=== PATIENT | female | born 1935 | race African-American/Black ===

== ENCOUNTER 2019-05-22 21:40 | Inpatient (IN) | payer OTHER ==
[~2019-05-22] VITALS: Ht 170.2 cm; Wt 49.0 kg
--- NOTE | ~2019-05-22 | HC ---
[address] [place] [address] CONSULTATION Name: ELIAN RUSSELL Room #: 445-P [facility] IN M.R.#: [id number] Admission: 05/23/19 Attend Phys: Brian Laurent MD Discharge: Date of : 31 Report #: [id number] THIS REPORT FOR: //name// CC: Brian Akbar DATE OF SERVICE: 05/23/2019 REASON FOR CONSULTATION: End-stage renal disease. REASON FOR PRESENTATION: Fever and mental status changes. HISTORY OF PRESENT ILLNESS: This is a very well-known patient to me. She is a dialysis patient at [facility]. She has advanced dementia. Her daughter brought her to the Emergency Room because she was acting in an unusual way with what seems to be fever. She has decreased oral intake in the last few days. The patient's daughter recorded a temperature of 100.2. Her daughter is usually her supervisor television chassis repair. She had reported that her mom had what seems to be a seizure-like activity. The patient was admitted to be further evaluated. No previous similar episodes. No nausea or vomiting, but she has reduced oral intake. She still makes some urine and the urine showed some red blood cells and white blood cells with some bacteria. She is currently being treated as a potential urinary tract infection causing her decompensation. MEDICATIONS: 1. Docusate. 2. Amlodipine. 3. Alprazolam. 4. Sensipar. PAST MEDICAL HISTORY: 1. End-stage renal disease. 2. Advanced dementia. 3. Bladder cancer. SOCIAL HISTORY: Lives with her daughter. FAMILY HISTORY: Unobtainable given her advanced dementia. REVIEW OF SYSTEMS: Unobtainable given her advanced dementia. PHYSICAL EXAMINATION: GENERAL: She is pleasantly demented, confused. VITAL SIGNS: Temperature 36.9, blood pressure 127/59. HEAD AND NECK: No jugular venous distention. CHEST: No crackles. [facility] [address] [place] [address] CONSULTATION Name: ELIAN RUSSELL Room #: 445-P [facility] IN [facility].#: [id number] Admission: 05/23/19 Attend Phys: Brian Laurent MD Discharge: Date of : 33 Report #: [id number] CARDIOVASCULAR: No rub detected. ABDOMEN: Soft, nontender. EXTREMITIES: Lower extremities, no edema. LABORATORY DATA: Laboratory values reviewed. White blood cell count is 10.8, hemoglobin is 11.6. Sodium is 139, BUN is 35, and creatinine is 6.1. ASSESSMENT, IMPRESSION AND PLAN: 1. End-stage renal disease. 2. Mental status changes with a baseline dementia. 3. Urinary tract infection. 4. Seizure activities per the family members. 5. We will arrange for the patient to have her usual hemodialysis every Thursday, and Thursday. 6. Blood cultures obtained in the ER and I will wait for those cultures to decide about further adjustment of her antibiotic. Meanwhile, continue with the Rocephin. 7. Investigate for other potential causes of infections. 8. We will continue to follow and address her needs accordingly. By: [phone] Yris Matos MD /nt
[~2019-05-22 21:40] MED LIST: ALPRAZOLAM 0.50.5 M1 PO; BACTRIM DS TAB1 EACH PO; CEPHALEXIN500 MG PO; CIPRO250 M1 PO; CIPRO500 MG PO; CITRATE OF MAG296 ML PO; COLACE100 MG PO; DIASTAT2.5 MG RECTAL; DILTIAZEM 24HR240 M1 PO; DILTIAZEM ER300 MG PO; FAMOTIDINE 40 M40 M1 PO; KEFLEX500 MG PO; LIPITOR10 MG PO; LORTAB 5-500 T1 EAC1 PO; MACROBID 100 M100 M1 PO; NEPHROCAPS SOFT1 CAP PO; NORVASC 2.5 MG2.5 M1 PO; NORVASC 2.5 MG2.5 MG PO; PEPCID40 MG PO; PLAVIX 75 MG TA75 M1 PO; RENALPREN SOFTGE1 MG PO; SENSIPAR 30 MG30 M1 PO; SERTRALINE HCL50 MG PO; VITAMIN B-1100 M2 PO; VITAMIN B-6100 MG PO; VITAMIN D31000 UNI2 PO
[2019-05-22 21:49] VITALS: BP 159/54
[2019-05-22] MEDS ORDERED: KEFLEX500 M2 PO (22:06)
[2019-05-22] MEDS ORDERED: RENA-VITE RX T1 EACH PO (22:07)
[2019-05-22] MEDS ORDERED: NORVASC 2.5 MG2.5 M1 PO (22:08)
[2019-05-22] MEDS ORDERED: FAMOTIDINE 20 M20 MG PO (22:08)
[2019-05-22 22:25] LABS: ABSOLUTE NEUTROPHILS 8.5 thou/uL (1.4-8.2); BASOPHILS 0.5 % (0.0-2.0); EOSINOPHILS 1.8 % (0.0-3.0); HEMATOCRIT 36.5 % (37.0-47.0); HEMOGLOBIN 11.6 gm/dL (12.0-15.0); LYMPHOCYTES 12.2 % (24.0-44.0); MCH 23.1 pg (26.0-34.0); MCHC 31.7 g/dL (28.0-37.0); MCV 72.7 fL (80.0-100.0); PLATELET COUNT 191 thou/uL (150-400); POLYS 78.5 % (36.0-66.0); RBC 5.02 mil/uL (4.20-5.00); RDW 16.7 % (10.5-14.5); WBC 10.8 thou/uL (4.0-11.0)
[2019-05-22 22:34] LABS: CALCIUM 8.8 mg/dL (8.5-10.1); CREATININE 6.1 mg/dL (0.6-1.0); POTASSIUM 4.7 mmol/L (3.5-5.1)
[2019-05-22 22:40] LABS: ALBUMIN 3.1 g/dL (3.4-5.0); TOTAL BILIRUBIN 0.5 mg/dL (<0.1-1.0); TOTAL PROTEIN 7.4 g/dL (6.4-8.2)
[2019-05-22 22:46] LABS: URINE BILIRUBIN NEGATIVE (Negative); URINE BLOOD 1+ (Negative); URINE CLARITY SL CLOUDY; URINE COLOR YELLOW; URINE GLUCOSE-RANDOM* NEGATIVE (Negative); URINE KETONES NEGATIVE (Negative); URINE NITRITE-REFLEX NEGATIVE (Negative); URINE PROTEIN (DIPSTICK) 2+ (Negative); URINE UROBILINOGEN 0.2 E.U./dl (0.2-1.0)
[2019-05-22 22:49] LABS: URINE LEUKOCYTES-REFLEX 3+ (Negative)
[2019-05-22 22:52] LABS: CASTS None Seen /LPF (None Seen); MUCUS 0-3 Light strn/LPF (None Seen); SQUAMOUS None Seen /LPF (0-3); URINE WBC-REFLEX >25 Many /HPF (0-5)
[2019-05-22 22:53] LABS: BACTERIA-REFLEX >30 Many /HPF (None Seen); CRYSTALS None Seen /LPF (None Seen); URINE RBC 3-10 Few /HPF (0-2); WBC CLUMPS Packed (None Seen)
[2019-05-22 23:54] LABS: ANISOCYTOSIS 1+; HYPOCHROMASIA 1+; MICROCYTES 1+
[2019-05-22 23:55] LABS: POLYCHROMASIA OCCASIONAL
[2019-05-23] VITALS (7 sets, daily range): BP systolic 13–137; BP diastolic 50–61
--- NOTE | 2019-05-23 04:29 | NUR ---
PT ARRIVED TO THE UNIT AT AROUND 0130 HRS ACCOMPANIED BY DTR. ADMISSION QUESTIONS ANSWERED BY DAUGHTER. PT WITH EYES CLOSED AND WILL SAY A WORD HERE AND THERE-OTHERWISE SHE IS PRETTY LETHARGIC LOOKING.SATTING OKAY ON ROOM AIR.SEIZURE PREC IN PLACE. AFEBRILE. BOLUS NS GIVEN.FISTULA TO SNEHAL WITH POSITIVE BRUIT AND THRILL.NO EDEMA.NO SOA. WILL CONTINUE WITH POC TILL EOS.
--- NOTE | 2019-05-23 11:26 | NUR ---
PT CARE ASSUMED AT 0700. PT IS Q2 TURNS. PT IS ALERT AND RESTING.TWO OF PT DAUGHTERS HAVE CALLED FOR AN UPDATE ON PT. PT AWAITING EKG. PT DOES NOT HAVE TEETH AND ACCORDING TO DAUGHTER EATS NON PUREED FOOD JUST FINE WITHOUT TEETH. FISTULA SITE HAS NO OPEN SITES AND HAS A PRESENT BRUIT AND THRILL. IV SITE IS PATENT WITH NO REDNESS OR SWELLING. WRAPPED WITH COBAN. SKIN IS INTACT. BP MEDICATION WAS HELD DUE TO LOW BP THIS AM. DIALYSIS TUE, THUR, SAT. ORDERS ARE IN FOR TOMORROWS DIALYSIS. BED IS IN LOW POSITION WITH BED ALARM ON AND LOCKED. ALL LIGHT IN REACH. SPOUSE IS HERE TO VISIT.
--- NOTE | 2019-05-23 14:07 | NUR ---
ORDERS RECEIVED FOR PT EVAL AND TREAT. Pt IS MOSTLY BEDBOUND PER Pt. HAS ADVANCED DEMENTIA. SPOKE WITH DTR. Pt GETS UP TO W/C WITH HEAVY TRANSFER ASSIST FROM FAMILY OR IS LIFTED INTO W/C BY 25 Y/O GRANDSON TO GO TO DIALYSIS THREE TIMES A WEEK. 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 TOTAL CARE FOR ADLs. Pt CAN FEED HERSELF FINGER FOODS. DTR IS Pt'S CAREGIVER BUT WORKS NIGHTS. Pt'S SON ALSO HELPS WITH CARES WELL GRANDSON. PER DTR, Pt STOPPED WALKING ABOUT 5 YEARS AGO, WAS AFRAID OF FALLING. Pt NOT APPROPRIATE FOR ACUTE PT SERVICES. ACUTE PT TO SIGN OFF.
--- NOTE | 2019-05-24 01:27 | NUR ---
ASSESSMENT COMPLETED. PT OBSERVED SLEEPING. EXHIBITS NO SIGNS OF PAIN. REPOSITIONING PROVIDED. AFEBRILE. REMAINS ON ROOM AIR.PLAN FOR DIALYSIS TOMORROW.
[2019-05-24 04:40] VITALS: BP 156/71
[2019-05-24 06:25] LABS: HEMATOCRIT 29.7 % (37.0-47.0); MCH 23.4 pg (26.0-34.0); MCHC 31.7 g/dL (28.0-37.0); MCV 73.6 fL (80.0-100.0); PLATELET COUNT 184 thou/uL (150-400); RBC 4.03 mil/uL (4.20-5.00); RDW 16.7 % (10.5-14.5); WBC 5.1 thou/uL (4.0-11.0)
[2019-05-24 06:33] LABS: HEMOGLOBIN 9.4 gm/dL (12.0-15.0)
[2019-05-24 06:37] LABS: CALCIUM 8.7 mg/dL (8.5-10.1); POTASSIUM 4.5 mmol/L (3.5-5.1)
[2019-05-24 06:39] LABS: CREATININE 7.2 mg/dL (0.6-1.0)
[2019-05-24 07:20] LABS: ABSOLUTE NEUTROPHILS 3.4 thou/uL (1.4-8.2); ANISOCYTOSIS 1+; HYPOCHROMASIA 1+; MICROCYTES 1+
--- NOTE | 2019-05-24 09:02 | NUR ---
assessment-pt LIVES AT HOME WITH HER DTR EZEKIEL, SON AND GRANDSON WHO IS 25 YEARS OLD. S/W DTR EZEKIEL & EX- AT THE BEDSIDE. PT VISION IS VERY POOR BUT IS ABLE TO EAT FINGER FOODS OTHERWISE PT NEEDS EVERYTHING DONE FOR HER. PT HAS ADVANCED DEMENTIA PER DTR. PT DOES TALK. DTR WORKS NIGHTS. PT HAS TO BE CARRIED TO THE CAR BY THE GRANDSON FOR TRANPORT TO DIALYSIS ON FIRST SHIFT BY CAR. DCI DTR ASKING ABOUT A SEARCH ENGINE OPTIMIZATION MANAGER WC AND PHYSICAL THERAPY DISCUSSED A TRANSPORT CHAIR WITH HER. DTR ANTICIPATES PT WILL DC BACK HOME ONCE MEDICALLY STABLE. FOLLOWING TO ASSIST WITH DC PLANNING.
[2019-05-24 09:16] VITALS: BP 124/65
--- NOTE | 2019-05-24 09:52 | EKG ---
[address] [employer] [place] [address] ELECTROCARDIOGRAM REPORT Name: ELIAN RUSSELL Room #: 445-P ADM IN M.R.#: [id number] Admission: 05/23/19 Attend Phys: Rosa Brewster Discharge: Date of : 33 Report #: [id number] THIS REPORT FOR: //name// [facility] ED Test Date: 2019-05-22 Test Time: 21:56:09 Pat Name: ELIAN RUSSELL Department: Room: 445 Gender: F Traffic Maintenance Supervisor: ISIDRA : 1935 Requested By: Zak Pereira Order Number: [id number] MD: Rip Metz Measurements Intervals [place] Rate: 81 P: -17 WI: 190 QRS: -23 QRSD: 78 T: 69 QT: 396 QTc: 460 Interpretive Statements Sinus rhythm Borderline left axis deviation Abnormal R-wave progression, early transition Compared to ECG 02/06/2018 11:35:44 No significant changes Electronically Signed On 05-24-2019 9:52:06 MOLDED GOODS OPERATOR by Rip Metz [email or web address] <ELECTRONICALLY SIGNED> By: Rip Metz MD, [facility] 05/24/19 0952 [id number] 55 Rip Metz MD, [facility] /EPI
--- NOTE | 2019-05-24 12:49 | NUR ---
Assess for low BMI. Pt admitted with UTI, has hx ESRD/dialysis and advanced dementia. Lives with daughter-present in room at time of visit. States pt usually eats well, no diet restrictions at home but follows up with renal dietitian if needed. Asking to have diet liberalized to regular-need to address with Production Controller for order. No teeth but tolerates most foods and prefers finger foods. No significant wt changes per daughter. Daughter eager to take mom back home stating "I don't even know why she is here". Low nutrition risk
--- NOTE | 2019-05-24 12:52 | NUR ---
Daughter is requesting diet to be liberalized to regular since she does not follow a restrictive diet at home. Need to address with jump roll operator for approval.
--- NOTE | 2019-05-24 17:57 | NUR ---
PT A&OX SELF. NON AMBULATORY AT THIS TIME. IV INTACT IN L FA. DAUGHTER HAS BEEN AT THE SEDSIDE THROUGHOUT THE DAY. HAS JUST RETURNED FROM DIALYSIS. BED ALARM ON, CALL LIGHT W/I REACH. WILL CONT POC.
[2019-05-24 19:26] VITALS: BP 120/40
[2019-05-25 00:40] VITALS: BP 120/40
--- NOTE | 2019-05-25 02:42 | NUR ---
PT RESTING QUIETLY. IV INTACT. DAUGHTER HAS STAYED WITH HER THROUGH THE NIGHT. CONTINUES TO RECEIVE ANCEF IV. STATED THAT SHE IS READY TO GO HOME.
[2019-05-25 04:17] VITALS: BP 123/40
[2019-05-25] MEDS ORDERED: CEFUROXIME250 MG PO (09:33)
[2019-05-25 09:39] VITALS: BP 137/56
--- NOTE | 2019-05-25 09:40 | NUR ---
pt care assumed at 0700. alert and oriented to self. pt. is calm and resting in her room. daughter would like some home health involved when discharging to help with a better routine at home. pt had dialysis yesterday. pt takes meds whole with applejuice. pt is to discharge today and daughter would like for this to happen before 1500 due to her work schedule. pt is a feeder. iv is saline locked, patent, with no redness or swelling.
[2019-05-25 10:42] VITALS: BP 137/56
[2019-05-25 11:21] VITALS: BP 137/56
[2019-05-25 12:03] VITALS: BP 137/56
--- NOTE | 2019-05-26 10:36 | NUR ---
PT DISCHARGED ON 05/25/19 FAXED DC ORDERS/SUMMARY TO [facility] SPOKE WITH EUGENIE IN INTAKE THEY RECEIVED DC ORDERS AND WILL NOTIFY PT TIME OF VISITS.
== END 2019-05-25 12:37 | disposition home health service (06) | DRG 689 ==
LOC: ER 21:40 → EROBS 05-23 00:29 → 4S 05-23 00:29
PROVIDERS: Nurse Practitioner; Nurse Practitioner Family; ADMIT Hospitalist
PROC: 5A1D70Z Performance of Urinary Filtration, Intermittent, Less than 6 Hours Per Day (ICD-10-PCS; principal; 2019-05-23)
DX: N12 Tubulo-interstitial nephritis, not specified as acute or chronic (principal); G93.41 Metabolic encephalopathy; E46 Unspecified protein-calorie malnutrition; Z68.1 Body mass index [BMI] 19.9 or less, adult; I12.0 Hypertensive chronic kidney disease with stage 5 chronic kidney disease or end stage renal disease; N18.6 End stage renal disease; F03.90 Unspecified dementia, unspecified severity, without behavioral disturbance, psychotic disturbance, mood disturbance, and anxiety; K21.9 Gastro-esophageal reflux disease without esophagitis; F32.9 Major depressive disorder, single episode, unspecified; C67.9 Malignant neoplasm of bladder, unspecified; R41.0 Disorientation, unspecified; R74.0 Nonspecific elevation of levels of transaminase and lactic acid dehydrogenase [LDH]; R56.9 Unspecified convulsions; D63.8 Anemia in other chronic diseases classified elsewhere; Z79.2 Long term (current) use of antibiotics; Z86.73 Personal history of transient ischemic attack (TIA), and cerebral infarction without residual deficits; Z79.899 Other long term (current) drug therapy
CPT/HCPCS: 10195; 32100

== ENCOUNTER 2020-07-24 10:34 | Inpatient (IN) | payer OTHER ==
[~2020-07-24] VITALS: Ht 170.2 cm; Wt 43.1 kg
[2020-07-24 10:34] VITALS: BP 148/54
[~2020-07-24 10:34] MED LIST changes: +CEFUROXIME250 MG PO; +FAMOTIDINE 20 M20 MG PO; +KEFLEX500 M2 PO; +RENA-VITE RX T1 EACH PO
[2020-07-24 11:13] LABS: ABSOLUTE NEUTROPHILS 3.8 thou/uL (1.4-8.2); EOSINOPHILS 3.2 % (0.0-3.0); HEMATOCRIT 37.4 % (37.0-47.0); HEMOGLOBIN 11.6 gm/dL (12.0-15.0); LYMPHOCYTES 17.5 % (24.0-44.0); MCH 23.2 pg (26.0-34.0); MCHC 31.1 g/dL (28.0-37.0); MCV 74.7 fL (80.0-100.0); MONOCYTES 7.9 % (1.0-8.0); PLATELET COUNT 204 thou/uL (150-400); POLYS 70.4 % (36.0-66.0); RBC 5.01 mil/uL (4.20-5.00); RDW 18.6 % (10.5-14.5); WBC 5.4 thou/uL (4.0-11.0)
[2020-07-24 11:26] LABS: URINE BILIRUBIN NEGATIVE (Negative); URINE BLOOD 3+ (Negative); URINE CLARITY CLOUDY; URINE COLOR YELLOW; URINE GLUCOSE-RANDOM* NEGATIVE (Negative); URINE KETONES NEGATIVE (Negative); URINE NITRITE-REFLEX NEGATIVE (Negative); URINE PROTEIN (DIPSTICK) 2+ (Negative); URINE UROBILINOGEN 0.2 E.U./dl (0.2-1.0)
[2020-07-24 11:32] LABS: URINE LEUKOCYTES-REFLEX 3+ (Negative)
[2020-07-24 11:36] LABS: INR 1.1; PROTIME 12.4 Seconds (9.3-11.4)
--- NOTE | 2020-07-24 11:44 | EKG ---
[address] [address] [facility] [place] [address] ELECTROCARDIOGRAM REPORT Name: ELIAN RUSSELL Room #: PRE [facility]..#: [id number] Admission: Attend Phys: Discharge: Date of : 33 Report #: [id number] [facility] ED Test Date: 2020-07-24 Test Time: 11:04:57 Pat Name: ELIAN RUSSELL Department: Room: Gender: F Poultry And Fish Butcher: DIMITRY : 1935 Requested By: Beba Barrientos Order Number: [id number] MD: Darwin Villarreal Measurements Intervals [place] Rate: 81 P: 49 ND: 177 QRS: -24 QRSD: 87 T: 84 QT: 404 QTc: 469 Interpretive Statements Sinus rhythm Borderline left axis deviation Abnormal R-wave progression, early transition Compared to ECG 05/22/2019 21:56:09 No significant changes Electronically Signed On 07-24-2020 11:44:37 POLITICAL GEOGRAPHER by Darwin Villarreal [email or web address] <ELECTRONICALLY SIGNED> By: Darwin Villarreal MD, [facility] 07/24/20 1144 1104 1104 Darwin Villarreal MD, [facility] /EPI
[2020-07-24 11:45] LABS: ANION GAP 13 mmol/L (7-16); BUN 21 mg/dL (7-18); CALCIUM 8.6 mg/dL (8.5-10.1); CHLORIDE 96 mmol/L (98-107); CO2 24 mmol/L (21-32); CREATININE 3.8 mg/dL (0.6-1.0); GLUCOSE 169 mg/dL (74-106); POTASSIUM 3.5 mmol/L (3.5-5.1); SODIUM 133 mmol/L (136-145)
[2020-07-24 11:50] LABS: SGOT 33 U/L (15-37); SGPT 21 U/L (14-59); TOTAL BILIRUBIN 0.4 mg/dL (0.2-1.0); TOTAL PROTEIN 7.4 g/dL (6.4-8.2); TROPONIN-I <0.06 ng/mL (<0.06)
[2020-07-24 12:07] LABS: WBC CLUMPS Many (None Seen)
[2020-07-24 12:08] LABS: BACTERIA-REFLEX >30 Many /HPF (None Seen); CASTS None Seen /LPF (None Seen); SQUAMOUS None Seen /LPF (0-3); URINE WBC-REFLEX >25 Many /HPF (0-5)
[2020-07-24 12:09] LABS: CRYSTALS None Seen /LPF (None Seen); URINE RBC 3-10 Few /HPF (0-2)
[2020-07-24] MEDS ORDERED: TUMS200 MG PO (13:11)
[2020-07-24 17:24] VITALS: BP 139/54
--- NOTE | 2020-07-24 17:46 | NUR ---
GURU WALLACE TO CONFIRM DIET SPEECH EVAL HAS NOT BEEN DONE AND FAMILY STATES THAT PT CAN ONLY EAT SOFT FOODS DUE TO NOT HAVING ANY TEETH AND HAS TO BE A KIDNEY DIET
[2020-07-24 18:03] VITALS: BP 139/54
[2020-07-24 20:00] VITALS: BP 151/55
--- NOTE | 2020-07-25 02:07 | NUR ---
PT CARE ASSUMED WITH PT IN BED WITH DAUGHTER AT THE BEDSIDE.PT ADMISSION STARTED .STAFF COMPLETED ADMISSION AND ASSESSMENT.DAUGTER ASSISTED WITH ANSWERING QUESTIONS PT UNABLE RESPOND.PT HAS NO TEETH BUT DAUGHTER SAID PT IS ABLE TO EAT REGULAR DIET ACCEPT FOR NUTS.DAUGHTER ASSISTED WITH FEEDING PT WITH SANDWICH AND PT ATE WITH NO ISSUES.PT HAS DIALYSIS ON THURSDAY AND THURSDAY AND HAD ONE YESTERDAY BEFORE COMING TO THE ED.PT IS ON BEDREST AND IS BED BOUND AND USES A W/C AT HOME WITH DAUGHTER.AVERY CATHETER IN PLACE.AV FISTULA FOR DIALYSIS ON LT UA.IV ACCESS ON RT UA AND LT IJ SL.WILL CONTINUE TO MONITOR PER POC
[2020-07-25 07:14] VITALS: BP 127/92
--- NOTE | 2020-07-25 12:36 | NUR ---
PT ADMITTED RELATED TO UTI AND SEPSIS. CM REVIEWED CHART AND SPOKE WITH CARE TEAM. CM CALLED AND SPOKE WITH PT'S DTR/ALANIS RUSSELL WHO WAS AT BEDSIDE. SHE INDICATED THAT PT HAD BEEN LIVING IN A HOUSE WITH HER WITH 2 STEPS TO ENTER AND NO STEPS SHE USES INSIDE. DTR INDICATED THAT THEY HAVE A HOSPITAL BED AND WC FOR HOME USE. DTR INDICATED THAT SHE AND FAMILY LIFT PT UP FOR TRANSFERS TO AND FROM SURFACES. PT GOES TO [facility] THURSDAY AND THURSDAY DURING PANDEMIC PER DTR'S PREFERENCE 6:30-9:30 CHAIR TIME. CM SPOKE WITH HER REGARDING POSSIBLE HOSPICE SERVICES HOSPITALIST HAD MENTIONED SHE MIGHT BE INTERESTED IN [facility] HOUSE ADMISSION DTR INDICATED THAT SHE WAS PLANNING FOR PT TO DC HOME AND NOT REALLY INTERESTED IN HH SERVICES UP DC. CM TO FOLLOW INDICATED WITH DC PLANNING.
[2020-07-25 16:42] VITALS: BP 97/46
--- NOTE | 2020-07-25 19:25 | NUR ---
Assumed pt care at 7am.Assessment completed,vss.Dtr at bs most of the time till around 1600 assisted with feeding. Completed bath given by shift supervisor rn early this shift.Pt pulled piv this am and was replaced iv team.Pt tolerated meds and diet.Dr Brewster here ,no new order noted.Fall bundle in place.Will continue to monitor.
[2020-07-25 19:48] VITALS: BP 118/53
--- NOTE | 2020-07-26 03:46 | NUR ---
PT IS A/O X1 AND IS UNABLE TO VERBALIZED NEEDS. IS ON BEDREST AND REQUIRES Q2HR TURNS AND FREQUENT ROUNDING. ROOM AIR. AVERY IN PLACE AND DRAINING YELLOW URINE. NO BM THIS SHIFT. VSS. SPOKE WITH DAUGHTER AND GAVE UPDATE. FALL PRECAUTIONS ARE IN PLACE, CALL LIGHT IS WITHIN REACH.
[2020-07-26 07:30] VITALS: BP 142/67
[2020-07-26] MEDS ORDERED: CEFADROXIL250 MG/5 M PO (10:35)
[2020-07-26] MEDS ORDERED: KEPPRA750 MG PO (10:36)
[2020-07-26 11:34] VITALS: BP 142/67
--- NOTE | 2020-07-26 12:14 | NUR ---
ASSUMED PT CARE AROUND 0700. PT ALERT TO SELF. ON ROOM AIR. AVERY IN PLACE. IV RT UA AND SALINE LOCKED.DIALYSIS PT AND FISTULA ON LEFT ARM. QX2 TURN. FALL PRECT IN PLACE. PT DAUGHTER IN THE ROOM. WILL CONT TO MONITOR. POSSIBLE DISCHARGE TODAY.
[2020-07-26 13:54] VITALS: BP 142/67
--- NOTE | 2020-07-26 13:55 | NUR ---
CM FOLLOWED UP WITH PT AND HER DTR AT BEDSIDE THIS AM. PT'S DTR INDICATED THAT SHE DIDN'T WANT MOM ASSESSED FOR [facility] SERVICES. SHE INDIATED SHE WAS RECEPTIE TO AN INFORMATIONAL PHONE CALL. CM FAXED REFERRAL OVER AND REQUESTED THAT [facility] CONTACT DTR REGARDING POSSIBLE FUTURE SERVICES. DTR INDICATED THAT SHE ANTICIPATES CONTINUING OP HD THURSDAY AND THURSDAY UNTIL PT STOPS EATING. DTR INDICATED SHE WASN'T INTERESTED IN ANY HH SERVICES UPON DC. CM NOTIFED PHYSICIAN AND HE IS AGREEABLE WITH PT DISCHARGING HOME TO SELF CARE PER THEIR PREFERENCE. PT'S DTR INDICATED THAT SHE IS ABLE TO TRANSPORT PT HOME THIS DAY VIA WC AND PERSONAL CAR. NO OTHER CM INTERVENTION INDICATED. PT TO DC HOME THIS DAY TO SELF CARE VIA DTR. [facility] TO CONTACT DTR FOR INFORMATIONAL CALL. CASE CLOSED.
--- NOTE | 2020-07-27 10:53 | HC ---
[facility] [place] [address] CONSULTATION Name: ELIAN RUSSELL Room #: 463-P [facility] [place] M.R.#: [id number] Admission: 07/24/20 Attend Phys: Rosa Tan Luz Maria Discharge: 07/26/20 Date of : 33 Report #: [id number] THIS REPORT FOR: cc: Evelina Akbar DNP, Mary E. DNP Khosla, Parveen K. MD ~ DATE OF SERVICE: 07/24/2020 HISTORY OF PRESENT ILLNESS: This is an 84-year-old female patient who is unable to provide any history at all. In fact, this patient is pretty unresponsive. I talked to Emergency Room physician, Dr. Barrientos, in detail and subsequently talked to the patient's family. The family tells me that this patient has a diagnosis of dementia, which was made several years ago. In last few months, her condition has deteriorated. 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 Now some time, she is able to talk and some time, she is not able to talk. Her memory is not good at the baseline. She is unable to feed herself. Speech has declined in the last few months. She gives a history that she has an episodes where she becomes unresponsive. They gave her some oxygen in dialysis, but she is confused for some time after those episodes. At one time, she was seen by Dr. Carlisle, who is a neurologist at [facility]. They asked them to watch this patient. Today, this patient had what looks like a seizure. Her eyes rolled up. She had shakiness. Her arms became stiff and she became confused. She was foaming out her mouth. She was brought to Emergency Room and a CT scan of the head was done, which demonstrated extensive atrophy as well as left frontal and multiple strokes all over the brain. REVIEW OF SYSTEMS: A 14-point review of system was carried out. This patient has a history of being on dialysis, anemia, stroke fractures, dementia and looks like seizure. She also had a history of urinary tract infection and what looks like encephalopathy. Even today, she has more than 25 WBC in her urine. A 14-point review of system was carried out, either from the record or from the family as summarized as above. PAST MEDICAL HISTORY: Positive for the fact that the patient may be having seizures. FAMILY HISTORY: Negative for congenital epilepsies. SOCIAL HISTORY: She needs a lot of assistance from the family and activity of daily living. PHYSICAL EXAMINATION: Indicates she is very drowsy. She barely wakes up. She [facility] [address] [place] [address] CONSULTATION Name: ELIAN RUSSELL Room #: 463-[facility] IN M.R.#: [id number] Admission: 07/24/20 Attend Phys: Rosa Brewster Discharge: 07/26/20 Date of : 33 Report #: [id number] barely opens her eyes. She did not have any speech output. It is not possible to check memory and fund of knowledge. Cranial nerve examination, 2-12 was attempted, the patient did not cooperate. Neuromuscular examination was attempted, the patient did not cooperate. There is no meningeal sign. I cannot look at the patient's fundus. She does not appear to be in marked respiratory distress. Cardiac examinations appear noncontributory. Pulses are difficult to feel. Blood pressure is 151/55, respiration is 16, pulse is 81, and temperature is 97.9. LABORATORY DATA: Indicate a white count of 5.4. Sodium is a trace low at 133. IMPRESSION: The patient appeared to have a seizure today. It is possible she was having seizures before. Impossible to rule out any new stroke. The patient's family was offered TPA. They declined that. They do not want any aggressive measure and even if thrombus is found, they do not want thrombectomy. Therefore, Emergency Room doctor did not do any further workup in that regard. They do want the patient to be completely comfort care, but close to that. They want infections and all to be treated, they want seizures to be treated, but they do not want any other aggressive workup or management in this patient. That appeared to be reasonable in this patient with the poor quality of the life and has strokes all over the place on the CT scan. I spent more than 50 minutes of time taking care of this patient and majority was spent counseling, coordinating and I reviewed extensive records and imaging studies in this patient. Thank you very much for this referral. <ELECTRONICALLY SIGNED> By: Alan House MD 07/27/20 1053 55 46 Alan House MD /nt
--- NOTE | 2020-07-27 10:54 | EEG ---
[facility] [place] [address] ELECTROENCEPHALOGRAM Name: ELIAN RUSSELL Room #: 463-P [facility] IN M.R.#: [id number] Admission: 07/24/20 Attend Phys: Jayross Tan Breannacarla Discharge: 07/26/20 Date of : 33 Report #: [id number] THIS REPORT FOR: //name// DATE OF SERVICE: 07/25/2020 This patient is being evaluated for the possibility of seizure. EEG was done by placing the electrode by standard 10-20 system of electrode placement. Both referential and sequential montages were used for recording. Background activity in this patient's EEG is about 5-6 Hz and 30 microvolt. It is a symmetrical activity, but it is disorganized and poorly formed. The patient may be drowsy during part of this EEG and that is associated with bilateral slowing. Photic stimulation is unremarkable. Throughout the record, no active epileptiform activity was noticed. IMPRESSION: This is an abnormal EEG because it is disorganized and poorly formed. That is a nonspecific abnormality, which can occur with encephalopathy, effect of psychotropic medication, dementia, etc. Clinical correlation is recommended. <ELECTRONICALLY SIGNED> By: Alan House MD 07/27/20 1054 1323 1329 Alan House MD /nt
== END 2020-07-26 14:20 | disposition home or self-care (01) | DRG 871 ==
LOC: ER 10:34 → EROBS 13:15 → 4W 13:15
PROVIDERS: Emergency Medicine; Psychiatry & Neurology Neuromuscular Medicine; ADMIT Hospitalist; ATTEND Hospitalist
DX: A41.51 Sepsis due to Escherichia coli [E. coli] (principal); N18.6 End stage renal disease; N30.01 Acute cystitis with hematuria; I12.0 Hypertensive chronic kidney disease with stage 5 chronic kidney disease or end stage renal disease; Z68.1 Body mass index [BMI] 19.9 or less, adult; K21.9 Gastro-esophageal reflux disease without esophagitis; F32.9 Major depressive disorder, single episode, unspecified; F03.90 Unspecified dementia, unspecified severity, without behavioral disturbance, psychotic disturbance, mood disturbance, and anxiety; Z66 Do not resuscitate; R62.7 Adult failure to thrive; Z99.2 Dependence on renal dialysis; Z86.73 Personal history of transient ischemic attack (TIA), and cerebral infarction without residual deficits
CPT/HCPCS: 10040

== ENCOUNTER 2020-10-13 09:54 | Emergency (ER) | payer OTHER ==
[~2020-10-13] VITALS: Ht 170.2 cm; Wt 43.1 kg
[~2020-10-13 09:54] MED LIST changes: +CEFADROXIL250 MG/5 M PO; +KEPPRA750 MG PO; +TUMS200 MG PO
[2020-10-13 12:30] LABS: URINE BILIRUBIN NEGATIVE (Negative); URINE BLOOD 2+ (Negative); URINE CLARITY CLEAR; URINE GLUCOSE-RANDOM* TRACE (Negative); URINE KETONES NEGATIVE (Negative); URINE NITRITE-REFLEX NEGATIVE (Negative); URINE PROTEIN (DIPSTICK) 2+ (Negative); URINE UROBILINOGEN 0.2 E.U./dl (0.2-1.0)
[2020-10-13 12:31] LABS: URINE LEUKOCYTES-REFLEX 3+ (Negative)
[2020-10-13 12:32] LABS: URINE COLOR YELLOW
[2020-10-13 12:34] LABS: ABSOLUTE NEUTROPHILS 5.8 thou/uL (1.4-8.2); BASOPHILS 0.4 % (0.0-2.0); EOSINOPHILS 1.3 % (0.0-3.0); HEMATOCRIT 32.4 % (37.0-47.0); HEMOGLOBIN 10.6 gm/dL (12.0-15.0); LYMPHOCYTES 6.1 % (24.0-44.0); MCH 23.3 pg (26.0-34.0); MCHC 32.7 g/dL (28.0-37.0); MCV 71.3 fL (80.0-100.0); PLATELET COUNT 219 thou/uL (150-400); POLYS 85.2 % (36.0-66.0); RBC 4.55 mil/uL (4.20-5.00); RDW 17.3 % (10.5-14.5); WBC 6.8 thou/uL (4.0-11.0)
[2020-10-13 12:39] LABS: ANION GAP 7 mmol/L (7-16); BUN 27 mg/dL (7-18); CHLORIDE 101 mmol/L (98-107); CO2 31 mmol/L (21-32); CREATININE 4.6 mg/dL (0.6-1.0); GLUCOSE 119 mg/dL (74-106); POTASSIUM 4.2 mmol/L (3.5-5.1); SODIUM 139 mmol/L (136-145)
[2020-10-13 12:48] LABS: TROPONIN-I <0.06 ng/mL (<0.06)
[2020-10-13 12:51] LABS: CASTS None Seen /LPF (None Seen); SQUAMOUS 0-3 Few /LPF (0-3); URINE RBC 1-2 Rare /HPF (NONE SEEN); URINE WBC-REFLEX 6-15 Few /HPF (0-5)
[2020-10-13 12:52] LABS: BACTERIA-REFLEX >30 Many /HPF (None Seen); CRYSTALS None Seen /LPF (None Seen); WBC CLUMPS Occasional (None Seen)
[2020-10-13 13:12] LABS: ANISOCYTOSIS 1+; HYPOCHROMASIA 1+; MICROCYTES 1+
[2020-10-13] MEDS ORDERED: OCUFLOX5 ML OPHTHALMIC (14:19)
[2020-10-13] MEDS ORDERED: PRED FORTE 1% EY5 M1 OPHTHALMIC (14:19)
[2020-10-13] MEDS ORDERED: LEVOFLOXACIN750 MG PO (14:19)
[2020-10-13 14:45] VITALS: BP 165/88
--- NOTE | 2020-10-14 15:12 | EKG ---
[address] [address] [place] [address] ELECTROCARDIOGRAM REPORT Name: ELIAN RUSSELL Room #: DEP [facility]#: [id number] Admission: 10/13/20 Attend Phys: Discharge: 10/13/20 Date of : 33 Report #: [id number] [facility] ED Test Date: 2020-10-13 Test Time: 10:00:22 Pat Name: ELIAN RUSSELL Department: Room: Gender: F Business Analyst Ecommerce: JCHAIADRIAN : 1935 Requested By: Tay Cortes Order Number: [id number] MD: Rip Metz Measurements Intervals [place] Rate: 110 P: 78 GA: 167 QRS: -25 QRSD: 83 T: 95 QT: 362 QTc: 490 Interpretive Statements Sinus tachycardia Atrial premature complexes Abnormal R-wave progression, early transition Borderline prolonged QT interval Compared to ECG 07/24/2020 11:04:57 Atrial premature complex(es) now present Heart rate has increased Electronically Signed On 10-14-2020 15:12:16 CDT by Rip Metz [email or web address] <ELECTRONICALLY SIGNED> By: Rip Metz MD, [facility] 10/14/20 1512 [phone] Rip Metz MD, [facility] /EPI
== END 2020-10-13 14:45 | disposition home or self-care (01) ==
LOC: ER 09:54
PROVIDERS: Emergency Medicine
DX: N39.0 Urinary tract infection, site not specified (principal); H10.9 Unspecified conjunctivitis; K21.9 Gastro-esophageal reflux disease without esophagitis; I10 Essential (primary) hypertension; Z86.73 Personal history of transient ischemic attack (TIA), and cerebral infarction without residual deficits; Z79.899 Other long term (current) drug therapy

== ENCOUNTER 2020-10-28 05:13 | Inpatient (IN) | payer OTHER ==
[~2020-10-28] VITALS: Ht 170.2 cm; Wt 39.0 kg
[~2020-10-28 05:13] MED LIST changes: +LEVOFLOXACIN750 MG PO; +NORVASC5 MG PO; +OCUFLOX5 ML OPHTHALMIC; +PRED FORTE 1% EY5 M1 OPHTHALMIC
[2020-10-28 05:22] VITALS: BP 104/65
[2020-10-28] MEDS ORDERED: COMBIGAN EYE DR10 ML RT. EYE (05:31)
[2020-10-28] MEDS ORDERED: LATANOPROST 0.2.5 ML RT. EYE (05:31)
[2020-10-28 05:48] LABS: ABSOLUTE NEUTROPHILS 4.9 thou/uL (1.4-8.2); BASOPHILS 0.2 % (0.0-2.0); EOSINOPHILS 3.3 % (0.0-3.0); HEMATOCRIT 34.6 % (37.0-47.0); HEMOGLOBIN 11.3 gm/dL (12.0-15.0); LYMPHOCYTES 19.6 % (24.0-44.0); MCH 23.5 pg (26.0-34.0); MCHC 32.5 g/dL (28.0-37.0); MCV 72.4 fL (80.0-100.0); MONOCYTES 8.9 % (1.0-8.0); PLATELET COUNT 224 thou/uL (150-400); RBC 4.79 mil/uL (4.20-5.00); RDW 18.6 % (10.5-14.5); WBC 7.3 thou/uL (4.0-11.0)
[2020-10-28 05:57] LABS: BE(vivo) 1.2 mmol/L (-2 to +3); HCO3 24.9 mmol/L (22.0-26.0); PCO2 36.1 mmHg (35.0-45.0); PO2 69.8 mmHg (80.0-100.0); pH 7.457 (7.360-7.450); sO2 94.9 % (92.0-98.0)
[2020-10-28 05:57] LABS: ANION GAP 8 mmol/L (7-16); BUN 45 mg/dL (7-18); CALCIUM 9.1 mg/dL (8.5-10.1); CHLORIDE 99 mmol/L (98-107); CO2 29 mmol/L (21-32); CREATININE 6.3 mg/dL (0.6-1.0); GLUCOSE 117 mg/dL (74-106); SODIUM 136 mmol/L (136-145)
[2020-10-28 06:07] LABS: MAGNESIUM 2.7 mg/dL (1.8-2.4); SGOT 54 U/L (15-37); SGPT 20 U/L (14-59); TOTAL BILIRUBIN 0.8 mg/dL (0.2-1.0); TOTAL PROTEIN 7.1 g/dL (6.4-8.2); TROPONIN-I <0.06 ng/mL (<0.06)
[2020-10-28 08:10] VITALS: BP 117/63
[2020-10-28 09:17] LABS: URINE BILIRUBIN NEGATIVE (Negative); URINE BLOOD 3+ (Negative); URINE COLOR YELLOW; URINE GLUCOSE-RANDOM* NEGATIVE (Negative); URINE KETONES NEGATIVE (Negative); URINE NITRITE-REFLEX NEGATIVE (Negative); URINE PROTEIN (DIPSTICK) 2+ (Negative); URINE SPECIFIC GRAVITY 1.015 (1.005-1.035); URINE UROBILINOGEN 0.2 E.U./dl (0.2-1.0)
[2020-10-28 09:19] LABS: URINE LEUKOCYTES-REFLEX 3+ (Negative)
[2020-10-28 09:20] LABS: URINE CLARITY CLOUDY
[2020-10-28 09:49] LABS: CASTS None Seen /LPF (None Seen); SQUAMOUS 0-3 Few /LPF (0-3)
[2020-10-28 09:50] LABS: BACTERIA-REFLEX >30 Many /HPF (None Seen); CRYSTALS None Seen /LPF (None Seen); URINE WBC-REFLEX >25 Many /HPF (0-5)
[2020-10-28 09:51] LABS: WBC CLUMPS Few (None Seen)
[2020-10-28 10:21] LABS: ANISOCYTOSIS 2+
[2020-10-28 10:22] LABS: HYPOCHROMASIA 1+; MICROCYTES 1+; SCHISTOCYTES FEW
[2020-10-28 10:25] LABS: POIKILOCYTOSIS 1+
[2020-10-28 11:36] VITALS: BP 141/60
--- NOTE | 2020-10-28 11:42 | EKG ---
[place] [address] [facility] [place] [address] ELECTROCARDIOGRAM REPORT Name: ELIAN RUSSELL Room #: 170-1 ADM IN M.R.#: [id number] Admission: 10/28/20 Attend Phys: Natalie Hernandez MD Discharge: Date of : 33 Report #: [id number] [facility] ED Test Date: 2020-10-28 Test Time: 05:47:14 Pat Name: ELIAN RUSSELL Department: Room: 170 Gender: F Fire Department Marine Engineer: MYA : 1935 Requested By: Niko Dawson Order Number: [id number] MD: Rip Metz Measurements Intervals [place] Rate: 67 P: -50 VT: 188 QRS: -35 QRSD: 78 T: 59 QT: 426 QTc: 450 Interpretive Statements Sinus rhythm Left axis deviation Borderline T abnormalities, lateral leads Compared to ECG 10/13/2020 10:00:22 Sinus tachycardia no longer present Atrial premature complex(es) no longer present Electronically Signed On 10-28-2020 11:42:03 CDT by Rip Metz [email or web address] <ELECTRONICALLY SIGNED> By: Rip Metz MD, [facility] 10/28/20 1142 0547 0547 Rip Metz MD, [facility] /EPI
[2020-10-28 12:00] VITALS: BP 176/51
[2020-10-28 15:40] VITALS: BP 158/53
--- NOTE | 2020-10-28 17:08 | NUR ---
PT TO THEN UNIT FROM THE ER. [place] ESENTIALLY NON RESPONSIVE - MOANS AT TIME WHEN MOVES AND WITHDRWS FROM PAINFUL STIMULI. DAUGHTER ACCOMAPANIED PATIENT- ORIENTED TO ROOM AND BEDSPACE - DAUGHTER GAVE INFORMATION FOR ADMISSION. PT WITH 96 CC IN BLADDER AND THERFORE NO AVERY NEEDED TO BE PLACED. BRIEF NOT VERY WET THOUGH. PT WITH GROIN RASH - CREAM ORDERED TO BE APPLIED. PT FIGHTING TO KEEP EYS CLOSED WHEN ATTMEPTING TO PLACE DROPS. PT TURNED IN BED. APPEARS TO BE RESTING AT THE PRESENT TIME.
[2020-10-28 20:30] VITALS: BP 150/55
[2020-10-29] VITALS (8 sets, daily range): BP systolic 135–175; BP diastolic 45–59
[2020-10-29 04:52] LABS: ABSOLUTE NEUTROPHILS 4.4 thou/uL (1.4-8.2); BASOPHILS 0.6 % (0.0-2.0); EOSINOPHILS 3.2 % (0.0-3.0); HEMATOCRIT 33.7 % (37.0-47.0); HEMOGLOBIN 10.9 gm/dL (12.0-15.0); LYMPHOCYTES 13.6 % (24.0-44.0); MCH 23.6 pg (26.0-34.0); MCHC 32.3 g/dL (28.0-37.0); MCV 72.9 fL (80.0-100.0); MONOCYTES 8.5 % (1.0-8.0); PLATELET COUNT 190 thou/uL (150-400); POLYS 74.1 % (36.0-66.0); RBC 4.63 mil/uL (4.20-5.00); RDW 19.3 % (10.5-14.5); WBC 5.9 thou/uL (4.0-11.0)
[2020-10-29 05:08] LABS: ALBUMIN 2.9 g/dL (3.4-5.0); CALCIUM 8.9 mg/dL (8.5-10.1); CREATININE 6.7 mg/dL (0.6-1.0); MAGNESIUM 2.8 mg/dL (1.8-2.4); POTASSIUM 4.5 mmol/L (3.5-5.1); TOTAL BILIRUBIN 0.5 mg/dL (0.2-1.0); TOTAL PROTEIN 6.8 g/dL (6.4-8.2)
--- NOTE | 2020-10-29 07:05 | NUR ---
PATIENTS CARES WERE ASSUMED AT SHIFT CHANGE. PATIENT WAS ASSESSED AND MEDS WERE PASSED. PATIENT DID REMAIN NPO DUE TO CONCERNES OF HER SWOLLOW. PATIENT TAKE THREE EYE GTTS OU AND IT IS A FIGHT TO GET THEM IN BUT POSSSIBLE. PATIENT IS INCONTINENT OF BOWEL AND BLADDER. SHE IS PLEASENT AND NOT HOSTIAL. ROUNDS WERE DONE. BED IS IN A LOW AND LOCKED POSITION.
--- NOTE | 2020-10-29 13:01 | NUR ---
CM COMPLETED ASSESSMENT W/PT'S DTR, EZEKIEL, PT HAS DEMENTIA. PT LIVES WITH EZEKIEL AND PT'S SON AND GRANDSONS. PT IS BLIND IN ONE EYE AND HAS CATARACT IN THE OTHER EYE. PT GOES TO DIALYSIS AT [facility] ON AND SAT (ONLY TWO DAYS/WK SINCE PANDEMIC). PT IS BED TO CHAIR BOUND. HAS A W/C PT DOESNT HAVE HX WITH HH OR SNF. FAMILY DOES NOT WANT EITHER AT THIS TIME.
--- NOTE | 2020-10-29 15:05 | NUR ---
Nutrition: Pt admitted with decreased responsiveness past week but able to eat when fed. lives with dtr. PMH: ESRD on hemodialysis, advanced dementia. Usual appetite is fairly good, no restrictions at home but can followup with renal RD if needed. Has been doing dialysis twice/week since pandemic. ST placed pt on pureed diet as bedside swallow indicated moderate oral dysphagia. Is edentulous. Has had gradual weight decline from 108# to 90# over the past 15 months. No hospice until pt stops eating per dtr. Offer ensure pudding daily due to nsg report pt likes pudding. Low risk with interventions in place.
[2020-10-29] MEDS ORDERED: LEVETIRACETAM250 MG PO (15:31)
--- NOTE | 2020-10-29 19:49 | NUR ---
PT IS AXOX1, SELF ONLY; PT IS ABLE TO ANSWER Y/N QUESTIONS, BUT DOES NOT KNOW SITUATION, DATE/DAY/TIME. DTR AT BEDSIDE THROUGHOUT THE DAY. OPTHAMOLOGY CONSULTED; PT LAST EYE EXAM IN CHART. VSS, AFEBRILE, SR ON MONITOR. DR CLIFFORD CONSULTED, GERIATRICS CONSULTED, UROLOGY CONSULTED. POST RESIDUAL BLADDER SCAN CONDUCTED AND PT HAD LESS THAN 20ML BOTH SCANS. AWAITING NEPHRO CONSULTATION TO DETERMINE IF PT IS TO RESUME DIALYSIS //THU. POC IS TO CONTINUE ABX THERAPY, AND ABX EYE DROPS. SPEECH CONSULTED AND PT IS ON PUREED DIET, WITH THIN LIQUIDS, RX CRUSHED IN APPLESAUCE. FALL PRECAUTIONS IN PLACE. FREQUENT ROUNDING.
[2020-10-30 00:15] VITALS: BP 153/90
[2020-10-30 04:29] VITALS: BP 159/59
[2020-10-30 04:48] LABS: ABSOLUTE NEUTROPHILS 7.1 thou/uL (1.4-8.2); BASOPHILS 0.5 % (0.0-2.0); EOSINOPHILS 2.9 % (0.0-3.0); HEMATOCRIT 35.7 % (37.0-47.0); HEMOGLOBIN 11.4 gm/dL (12.0-15.0); LYMPHOCYTES 6.6 % (24.0-44.0); MCH 23.3 pg (26.0-34.0); MCV 72.8 fL (80.0-100.0); MONOCYTES 8.2 % (1.0-8.0); PLATELET COUNT 209 thou/uL (150-400); POLYS 81.8 % (36.0-66.0); RBC 4.91 mil/uL (4.20-5.00); RDW 19.2 % (10.5-14.5); WBC 8.7 thou/uL (4.0-11.0)
[2020-10-30 05:14] LABS: CALCIUM 9.2 mg/dL (8.5-10.1); CREATININE 7.4 mg/dL (0.6-1.0); POTASSIUM 5.1 mmol/L (3.5-5.1)
[2020-10-30 07:40] VITALS: BP 174/30
--- NOTE | 2020-10-30 07:49 | NUR ---
PATIENTS CARES WEE ASSUMED AT SHIFT CHANGE. PATIENT WAS ASSESSED AND MEDS WERE PASSED. PATIENT REMAINS NON VERBAL FOR THIS NURSE. PATIENT WAA A TURN 2Q. PATIENT WAS WASHED AFTER A INCONTINENT EVENT. SKIN IS INTACK. ROUNDS WER MADE. THE BED IS IN A LOW AND LOCKED POSITION AND THE BED ALARM IS ON
--- NOTE | 2020-10-30 09:14 | NUR ---
RN SPOKE WITH PT'S DAUGHTER EZEKIEL VIA TELEPHONE AND GAVE PT UPDATE. EZEKIEL STATES SHE WILL COME VISIT WITH PT AFTER DIALYSIS.
[2020-10-30 11:50] VITALS: BP 108/39
[2020-10-30 15:10] VITALS: BP 95/34
--- NOTE | 2020-10-30 19:48 | NUR ---
PT REMAINED VERY SOMNOLENT MOST OF SHIFT. PT HAD DIALYSIS THIS MORNING AND HAD 2L OF FLUID REMOVED. PT HAD 2 INCONTINENT TIMES OF URINE. NO BM THIS SHIFT. PT'S DAUGHTER FED PATIENT LUNCH AND DINNER WHERE PT ATE APPROXIMATELY 50% OF BOTH LUNCH AND DINNER. PT KEEP EYES SHUT MOST OF SHIFT HOWEVER DID HAVE THEM OPEN AT TIMES DURING DIALYSIS. PT WAS AWAKE ENOUGH AT TIMES TO TAKE MEDS CRUSHED IN APPLESAUCE WITH SWALLOWING PRECAUTIONS IN PLACE. BED RAILS PADDED DUE TO H/O SEIZURES PER KYLE.
[2020-10-30 20:02] VITALS: BP 100/37
[2020-10-31] VITALS (9 sets, daily range): BP systolic 117–145; BP diastolic 46–99
--- NOTE | 2020-10-31 07:36 | HC ---
[facility] [place] [address] CONSULTATION Name: ELIAN RUSSELL Room #: 203-P ADM IN M.R.#: [id number] Admission: 10/28/20 Attend Phys: Natalie Hernandez MD Discharge: Date of : 31 Report #: [id number] THIS REPORT FOR: cc: Evelina Akbar DNP, Mary E. DNP Al-Absi, Ahmed I. MD ~ DOC #: [id number] Yris Matso MD REASON FOR THE CONSULTATION: End-stage renal disease. REASON FOR THE PRESENTATION: Fever. HISTORY OF PRESENT ILLNESS: Obtained from the medical chart. The patient is completely disoriented. She is demented. She is a no code 85-year-old with history of end-stage renal disease, maintained on hemodialysis. She dialyzes every Thursday and ____. She had presented with her daughter yesterday, reporting that she has been having fever and some altered mental status. The patient was admitted to further evaluate her condition. I was consulted to manage her end-stage renal disease. When I evaluated her today, she seems to be at her baseline. She grew E. coli in her urine and she is currently being treated for that. She is due for dialysis today. PAST MEDICAL HISTORY: 1. End-stage renal disease, maintained on hemodialysis every Thursday and ____. 2. Hypertension. 3. Dementia. 4. Remote history of stroke. 5. Remote history of bladder cancer. 6. Left AV fistula. SOCIAL HISTORY: Resides with her daughter. REVIEW OF SYSTEMS: Unobtainable given the patient's current mental status. ALLERGIES: None. LISTED MEDICATIONS: 1. Tums. 2. Timolol eyedrops. 3. Vitamin B. 4. Keppra. 5. Prednisone eyedrops. PHYSICAL EXAMINATION: VITAL SIGNS: Blood pressure is 159/59, temperature 36.6. [facility] [address] [place] [address] CONSULTATION Name: ELIAN RUSSELL Room #: 203-[facility] IN [facility].#: [id number] Admission: 10/28/20 Attend Phys: Natalie Hernandez MD Discharge: Date of : 31 Report #: [id number] HEAD AND NECK: Red eyes present bilaterally. CHEST: No crackles. CARDIOVASCULAR: No rub. ABDOMEN: Soft, nontender. EXTREMITIES: Lower extremities, no edema. NEUROLOGICAL: She is nonverbal. No evidence of gross deficit. LABORATORY VALUES: Hemoglobin is 11.4. Sodium is 137, potassium is 5.1, BUN is 63, creatinine 7.4. ASSESSMENT, IMPRESSION, PLAN: 1. End-stage renal disease. 2. Urinary tract infection. 3. Dementia. 4. We will continue with the usual hemodialysis every Thursday and ____. 5. Treatment of urinary tract infection. 6. Ongoing neurological evaluation for her ongoing encephalopathy. Yris Matos MD AIA/PAOLA/ARPITA <ELECTRONICALLY SIGNED> By: Yris Matos MD 10/31/20 0736 2 [id number] Yris Matos MD /nt
--- NOTE | 2020-10-31 07:42 | NUR ---
SLEPT MOST OF SHIFT. APPEARS COMFORTABLE. PATIENT MUMBLES BUT DOES NOT MOAN. MENTATION IS UNCHANGED. DAUGHTER AT BEDSIDE THIS AM AND INFORMATION GIVEN. WORKING ON PLAN OF CARE FOR NOC. TURNED EVERY TWO HOURS FOR COMFORT AND SKIN CARE. CONTINUE TO ASSES.
[2020-10-31] MEDS ORDERED: CEFEPIME 1 GM VI1 G2 INJECTION (11:19)
--- NOTE | 2020-10-31 11:46 | NUR ---
patient admits with CVA. Plan discharge today. Sp with dtr offered option of care. Dtr denies. She reports she is taking FMLA and will be avail to patient. Dtr reports want to continue dialysis. Dializes . , thursday at [facility]. Dr wilburn wants to cont cefepime 2 more doses at dialysis clinic. Sp with DJ at [facility] who reports they can accomadate, they have medication. Updated dtr of cont antibiotic at clinic. She plans for dialysis in am. Arranged [facility] stretcher for home between [phone]. Verified address. dtr in agreement with mi plan. Updated RN. Faxed clinical information to [facility] and orders no further needs.
--- NOTE | 2020-10-31 14:31 | NUR ---
PT IS AXOX1, SELF ONLY. PT IS ABLE TO RESPOND TO FOOD STIMULI AND PAINFUL STIMULI RELATING TO EYE DROPS. VS BP LOW, AFEBRILE, SR ON MONITOR. PT HAD MRI AND DETERMINED PT HAD A STROKE. PT BP TO STAY ELEVATED IN ORDER TO ENSURE OXYGENATION. DR MORALES CONSULTED, SPEECH CONSULTED. PT TO D/C HOME WITH DTR. FALL PRECAUTIONS IN PLACE.
[2020-10-31] MEDS ORDERED: ASPIRIN EC81 M1 PO (17:33)
[2020-10-31] MEDS ORDERED: LIPITOR 20 MG T20 M1 PO (17:34)
--- NOTE | 2020-11-01 14:16 | HC ---
[facility] [place] [address] CONSULTATION Name: ELIAN RUSSELL Room #: 203-P [facility] IN M.R.#: [id number] Admission: 10/28/20 Attend Phys: Natalie Hernandez MD Discharge: 10/31/20 Date of : 31 Report #: [id number] THIS REPORT FOR: cc: Evelina Akbar DNP, Mary E. DNP Khosla, Parveen K. MD ~ DOC #: [id number] Alan House MD DATE OF SERVICE: 10/28/2020 HISTORY OF PRESENT ILLNESS: An 85-year-old female patient who was brought in with a urinary tract infection and altered mental status of about 3 days' duration. The patient's family provide that history. She is basically not responsive. She had some ophthalmology problem when she went to an trimming cutter machine. I am not sure what the problem was and what they found and she said the pressure was high. She says she has a cataract, but she does not know about glaucoma. REVIEW OF SYSTEMS: This patient was admitted here. I reviewed those notes. In fact, I have seen this patient and there was question of seizure. The patient was put on Keppra. The family wanted very conservative care. In fact, the patient was considered for conservative care as well as for hospice at that time and she was seen by Dr. Riley for palliative care or hospice care at that time. Review of system is pretty extensive in this patient. They says she had a stroke in 1980, but that affected mainly her memory. Her memory has been poor since that time. Some question was there about multi-infarct dementia. At one time, she has seen Dr. Pedraza a neurologist at [facility]. She is a dialysis patient. In one time her eyes rolled upward. She has a history of anemia. 14-point review of system was otherwise noncontributory. PAST MEDICAL HISTORY: Positive for renal failure. FAMILY HISTORY: Unremarkable. SOCIAL HISTORY: She needs a lot of care, and apparently the family provides that. PHYSICAL EXAMINATION: Indicate that she basically does not respond to pain or verbal stimuli. That makes the examination very difficult. She is very mildly built and very thin individual. Neurological examination is almost impossible. When I tried to do the fundus or pupil examination. She squeezes her eyes shut. There is no meningeal sign. I cannot tell about any other examination in this patient regarding neuromuscular or cranial nerve examination. Cardiac examinations appear unremarkable. No respiratory difficulty was noticed. Blood pressure is 176, pulse 51, respirations 20, pulse is 97.8. [address] [address] CONSULTATION Name: ELIAN RUSSELL Room #: 203-[facility] IN M.R.#: [id number] Admission: 10/28/20 Attend Phys: Natalie Hernandez MD Discharge: 10/31/20 Date of : 31 Report #: [id number] LABORATORY DATA: White count is normal. GFR is only 8. She had a CT scan of the head which showed chronic changes. IMPRESSION: This patient has numerous problems. Reviewing the records indicate that this patient was considered for palliative and hospice care. I am not sure when it was changed and MRI is already scheduled. I will look at it. I will check an EEG. I am not sure what else can be done and I think palliative care will be the best option in this patient. She is only on 250 mg of Keppra, which is a very small dose and we can even stop that, but we will see how she does after treating the urinary tract infection and go from there. Thank you very much for this referral. Alan House MD PK/SAT <ELECTRONICALLY SIGNED> By: Alan House MD 11/01/20 1416 [id number] Alan House MD /nt
== END 2020-10-31 17:57 | disposition home or self-care (01) | DRG 64 ==
LOC: ER 05:13 → EROBS 08:07 → 2N 08:07
PROVIDERS: Emergency Medicine; ADMIT Internal Medicine; ATTEND Internal Medicine
DX: I63.89 Other cerebral infarction (principal); N18.6 End stage renal disease; E43 Unspecified severe protein-calorie malnutrition; N39.0 Urinary tract infection, site not specified; I12.0 Hypertensive chronic kidney disease with stage 5 chronic kidney disease or end stage renal disease; Z68.1 Body mass index [BMI] 19.9 or less, adult; G93.40 Encephalopathy, unspecified; B96.20 Unspecified Escherichia coli [E. coli] as the cause of diseases classified elsewhere; K21.9 Gastro-esophageal reflux disease without esophagitis; F32.9 Major depressive disorder, single episode, unspecified; F03.90 Unspecified dementia, unspecified severity, without behavioral disturbance, psychotic disturbance, mood disturbance, and anxiety; R62.7 Adult failure to thrive; B37.9 Candidiasis, unspecified; R40.2421 Glasgow coma scale score 9-12, in the field [EMT or ambulance]; G40.909 Epilepsy, unspecified, not intractable, without status epilepticus; Z66 Do not resuscitate; Z20.822 Contact with and (suspected) exposure to COVID-19; Z87.891 Personal history of nicotine dependence; Z85.51 Personal history of malignant neoplasm of bladder; Z79.899 Other long term (current) drug therapy; Z99.2 Dependence on renal dialysis; Z86.73 Personal history of transient ischemic attack (TIA), and cerebral infarction without residual deficits; Z74.01 Bed confinement status
CPT/HCPCS: 10081; 10194; 32100